=== PATIENT | male | born 1960 | race Caucasian/White ===

== ENCOUNTER 2016-10-16 15:53 | Emergency (ER) | payer OTHER ==
--- NOTE | ~2016-10-16 | EKG ---
PATIENT: MARTY MOISE UNIT #: [id number] Ventricular Rate: 83 BPM Atrial Rate: 83 BPM P-R Interval: 160 ms QRS Duration: 156 ms Q-T Interval: 408 ms QTC Calculation(Bezet): 479 ms P [place]: 36 degrees Calculated R [place]: 72 degrees Calculated T [place]: 2 degrees Diagnosis Line: Normal sinus rhythm Diagnosis Line: Right bundle branch block Diagnosis Line: Abnormal ECG Diagnosis Line: When compared with ECG of 03-JUN-2016 15:30, Diagnosis Line: No significant change was found Diagnosis Line: Confirmed by NGHIA LOONEY MD ([id number]) on Diagnosis Line: 10/18/2016 4:03:32 PM INTERPRETING MD: AURE MUÑOZ
--- NOTE | ~2016-10-16 | CR72 ---
[facility] A Service of [facility] & [facility] RADIOLOGY TEXT RESULTS PATIENT: MARTY MOISE LOCATION: [facility] : 58 UNIT #: [id number] AGE: [address]: Raquel Lerma MD SEX: M ORDER DR: [id number] [facility] [address] [place], [place] [address] [id number] MR#: [id number] Acc #: [id number] NAME: MARTY MOISE : 1960 SEX: M STUDY DATE/TIME: 10/16/2016 15:46 UNIT: [facility] ROOM: STUDY DESCRIPTION: CR Chest Single View Portable Attending Physician: Raquel Lerma M.D. Ordering Physician: Raquel Lerma M.D. Primary Care Physician: Derian Edwards MEDICAL IMAGING REPORT This report is preliminary unless electronic signature is present EXAM Portable chest HISTORY Chest pain and weakness for 2 days. FINDINGS The cardiac size and pulmonary vascularity are normal. Lungs are clear. No infiltrates or effusions. Mild mid-right thoracic curve. Developmental fusion of the left first and second ribs. IMPRESSION No acute findings. No active disease. Dictated by... Evert Gaspar M.D. THIS IS AN ELECTRONICALLY VERIFIED REPORT Evert Gaspar M.D. at 10/17/2016 2:17 PM KRISS/sally TD: 10/17/2016 06:45 JOB #: [id number] MEDICAL IMAGING REPORT COPY
[~2016-10-16 15:53] MED LIST: AMBIEN10 MG PO; ASPIRIN ENTERI325 M1 PO; ASPIRIN81 M1 PO; ASPIRIN81 M2 PO; AVANDAMET PO; AVANDIA PO; B/P MED PO; BENADRYL25 MG PO; CARVEDILOL3.125 MG PO; CLONAZEPAM0.5 MG PO; CLOPIDOGREL75 MG PO; COREG3.125 MG PO; DIOVAN HCT 160-1 TAB PO; DIOVAN HCT 1601 EACH PO; DIOVAN160 MG PO; DURAGESIC1 EACH TD; FISH OIL 1,001000 M1 PO; FISH OIL 1,001000 MG PO; FLEXERIL10 MG PO; GABAPENTIN400 MG PO; GABAPENTIN600 MG PO; GLUCOPHAGE500 MG PO; HIBICLENS118 ML TP; HUMULIN N VIAL SQ; HUMULIN N100 U/ML SQ; HUMULIN R100 U/ML SQ; HUMULIN R100 U/ML SUBQ; HYCODAN PO; HYDRALAZINE HCL25 MG PO; HYDROCHLOROTH12.5 M1 PO; IMDUR-ER60 M1 PO; IMDUR-ER60 M2 PO; IMDUR-ER60 MG PO; KADIAN10 MG PO; KEFZOL2 GM INJ; KLONOPIN PO; KLONOPIN0.5 MG PO; KLONOPIN2 MG PO; LANTUS100 U/ML SUBQ; LEVEMIR SUBQ; LIPITOR PO; LIPITOR40 MG PO; LISINOPRIL PO; LOPID600 MG PO; LYRICA50 MG PO; METFORMIN HCL500 M1 PO; METFORMIN PO; MOBIC PO; NAPROSYN500 MG PO; NEURONTIN600 MG PO; NITROGLYGERIN0.4 MG SL; NITROSTAT0.4 MG SL; NORVASC10 MG PO; NOVOLIN N100 UNIT/1 SUBQ; NOVOLIN R100 UNITS/ SQ; NOVOLIN R100 UNITS/ SUBQ; OMEPRAZOLE40 M1 PO; OXYCODONE HCL10 MG PO; PERCOCET 10/3251 TAB PO; PERCOCET PO; PERCOCET10 PO; PERCOCET5/325 PO; PHENERGAN25 M1 PO; PLAVIX PO; PRILOSEC40 MG PO; PROMETHAZINE HC25 MG PO; PROTONIX PO; ROBAXIN 750750 M1 PO; ROBAXIN PO; SIMVASTATIN20 MG PO; TRICOR145 MG PO; ULTRA A-D2 MG PO; VALSARTAN-HCTZ1 EAC1 PO; VICTOZA0.6 MG/0.1 SQ; ZITHROMAX PO; ZOCOR20 MG PO; [UNRECOGNIZED DRUG - OTHER] SUBQ
[2016-10-16 16:13] LABS: POC - TROPONIN <0.05 ng/mL (<=0.05)
[2016-10-16 17:01] LABS: BASOPHIL# 0.1 X10e3 (0-0.3); BASOPHIL% 1.1 % (0-2.5); DIFF IND NO; EOSINOPHIL# 0.3 X10e3 (0-0.7); EOSINOPHIL% 3.6 % (0.0-7.0); HEMATOCRIT 39.6 % (38.0-50.0); HEMOGLOBIN 13.8 gm/dL (13.0-16.0); LYMPHOCYTE# 2.3 X10e3 (1.0-3.5); LYMPHOCYTE% 26.7 % (17.0-45.0); MEAN CELL VOLUME 83.1 FL (83-96); MEAN CORPUSCULAR HEMOGLOBIN 28.9 PG (28-34); MEAN CORPUSCULAR HGB CONC 34.8 g/dL (30-36); MEAN PLATELET VOLUME 9.8 FL (6.5-11.5); MONOCYTE# 0.6 X10e3 (0-1.0); MONOCYTE% 7.1 % (3.0-12.0); NEUTROPHIL# 5.2 X10e3 (1.5-7.1); NEUTROPHIL% 61.5 % (40-75); PLATELET COUNT 225 X10e3 (140-420); RED BLOOD COUNT 4.76 X10e (3.90-5.60); RED CELL DISTRIBUTION WIDTH 13.5 % (11.0-15.5); WHITE BLOOD COUNT 8.5 X10e3 (4.0-10.5)
[2016-10-16 17:14] LABS: PARTIAL THROMBOPLASTIN TIME 27.3 SECONDS (23.5-31.3); PROTHROMBIN TIME (PATIENT) 10.5 SECONDS (9.6-11.5)
[2016-10-16 17:21] LABS: ALBUMIN SERUM 3.9 g/dL (3.5-5.0); ALKALINE PHOSPHATASE 77 U/L (32-92); ALT (SGPT) 34 U/L (10-40); AST (SGOT) 26 U/L (10-42); BILIRUBIN,TOTAL 0.6 mg/dL (0.2-2.0); BLOOD UREA NITROGEN 16 mg/dL (9-23); CALCIUM SERUM 9.1 mg/dL (8.4-10.2); CARBON DIOXIDE 25 mmol/L (22-31); CHLORIDE 100 mmol/L (100-111); CREATININE SERUM 0.8 mg/dL (0.6-1.4); GLOM FILT RATE Estimated ABOVE60 mL/min (>60); GLUCOSE FASTING 329 mg/dL (70-110); POTASSIUM 4.2 mmol/L (3.5-5.1); PROTEIN TOTAL SERUM 7.1 g/dL (6.0-8.3); SODIUM 133 mmol/L (135-145)
[2016-10-16 17:22] LABS: BILIRUBIN, DIRECT <0.1 mg/dL (0.0-0.2); BILIRUBIN,INDIRECT 0.5 mg/dL (0.0-0.9)
[2016-10-16 18:24] LABS: POC - TROPONIN <0.05 ng/mL (<=0.05)
== END 2016-10-16 19:50 | disposition home or self-care (01) ==
LOC: CED 15:53
PROVIDERS: Emergency Medicine
DX: E11.65 Type 2 diabetes mellitus with hyperglycemia (principal); I10 Essential (primary) hypertension
CPT/HCPCS: 36415; 71010; 80048; 80076; 82553; 82947; 84484; 85025; 85610; 85730; 93005; 96361; 96374; 96375; 99284; J2270; J2405

== ENCOUNTER 2016-11-18 14:59 | Emergency (ER) | payer OTHER ==
--- NOTE | ~2016-11-18 | CR2 ---
[facility] A Service of [facility] & [facility] RADIOLOGY TEXT RESULTS PATIENT: MARTY MOISE LOCATION: [facility] : 58 UNIT #: [id number] AGE: [address]: Donny Burton MD SEX: M ORDER DR: [id number] [facility] [address] [place], [place] [address] [id number] MR#: [id number] Acc #: [id number] NAME: MARTY MOISE : 1960 SEX: M STUDY DATE/TIME: 11/18/2016 15:28 UNIT: [facility] ROOM: STUDY DESCRIPTION: CR Abdomen Acute Series Attending Physician: Donny Burton M.D. Ordering Physician: Donny Burton M.D. Primary Care Physician: Derian Edwards M.D. MEDICAL IMAGING REPORT This report is preliminary unless electronic signature is present EXAM Acute abdomen series with chest 11/18/2016 HISTORY Weakness and vomiting for 4 days. An AP view of the chest is obtained and flat and upright views of the abdomen obtained. FINDINGS Chest radiograph is compared to 10/16/2016 and remains unremarkable. Flat and upright abdomen shows a essentially normal bowel gas pattern. There are postop changes of cholecystectomy. Fecal residue is seen throughout the colon. CONCLUSION 1. Normal chest. 2. Status post cholecystectomy. 3. Unremarkable bowel gas pattern. Dictated by... Edward Brown M.D. THIS IS AN ELECTRONICALLY VERIFIED REPORT Edward Brown M.D. at 11/19/2016 10:56 AM Usha TD: 11/18/2016 18:45 JOB #: [id number] MEDICAL IMAGING REPORT Page 1 of 1 COPY
[2016-11-18 14:01] LABS: BASOPHIL# 0.1 X10e3 (0-0.3); BASOPHIL% 1.1 % (0-2.5); EOSINOPHIL# 0.3 X10e3 (0-0.7); EOSINOPHIL% 4.4 % (0.0-7.0); HEMATOCRIT 39.8 % (38.0-50.0); HEMOGLOBIN 13.3 gm/dL (13.0-16.0); LYMPHOCYTE# 1.9 X10e3 (1.0-3.5); MEAN CELL VOLUME 84.4 FL (83-96); MEAN CORPUSCULAR HEMOGLOBIN 28.3 PG (28-34); MEAN CORPUSCULAR HGB CONC 33.5 g/dL (30-36); MONOCYTE# 0.6 X10e3 (0-1.0); MONOCYTE% 8.5 % (3.0-12.0); NEUTROPHIL# 4.1 X10e3 (1.5-7.1); PLATELET COUNT 239 X10e3 (140-420); RED BLOOD COUNT 4.71 X10e (3.90-5.60); RED CELL DISTRIBUTION WIDTH 13.3 % (11.0-15.5); WHITE BLOOD COUNT 6.9 X10e3 (4.0-10.5)
[2016-11-18 14:02] LABS: DIFF IND NO
[2016-11-18 14:28] LABS: BILIRUBIN, DIRECT 0.1 mg/dL (0.0-0.2); BILIRUBIN,INDIRECT 0.5 mg/dL (0.0-0.9); BILIRUBIN,TOTAL 0.6 mg/dL (0.2-2.0); CALCIUM SERUM 9.4 mg/dL (8.4-10.2); GLOM FILT RATE Estimated 83.2 mL/min (>60); POTASSIUM 4.4 mmol/L (3.5-5.1); PROTEIN TOTAL SERUM 7.5 g/dL (6.0-8.3)
[2016-11-18 14:28] LABS: URINE SOURCE CLEAN CATCH
[2016-11-18 14:39] LABS: URINE APPEARANCE CLEAR; URINE BILIRUBIN NEG (NEG); URINE BLOOD NEG (NEG); URINE COLOR YELLOW; URINE GLUCOSE NEG (NEG); URINE KETONE NEG (NEG); URINE LEUKOCYTE ESTERASE NEG (NEG); URINE NITRATE NEG (NEG); URINE PROTEIN NEG (NEG); URINE SPECIFIC GRAVITY 1.014 (1.003-1.035)
[2016-11-18 15:10] LABS: CULTURE INDICATED? NO
== END 2016-11-18 16:53 | disposition home or self-care (01) ==
LOC: CED 14:59
DX: R25.2 Cramp and spasm (principal); E11.65 Type 2 diabetes mellitus with hyperglycemia; I10 Essential (primary) hypertension; R11.2 Nausea with vomiting, unspecified
CPT/HCPCS: 36415; 74022; 80048; 80076; 81003; 82947; 83690; 85025; 99283

== ENCOUNTER 2017-02-02 11:31 | Inpatient (IN) | payer OTHER ==
--- NOTE | ~2017-02-02 | CO ---
Unit #: [id number] #: [id number] Patient: MARTY MOISE [id number] [address] [address] [id number] I MR#: [id number] NAME: MARTY MOISE ROOM: 231 Age: 56 Sex: M Admission Date: 02/02/2017 : 1960 Attending Physician: Arnol Phan M.D. Primary Care Physician: Derian Edwards M.D. CONSULTATION REPORT REASON FOR CONSULTATION Elevated creatinine level. HISTORY OF PRESENT ILLNESS The patient is a 56-year-old white male with known history of type 2 diabetes, diabetic neuropathy, hypertension, hyperlipidemia, coronary artery disease, GERD, and peripheral arterial disease, came in with diabetic left foot infection, started on vancomycin, noted to have a vancomycin level of 39, creatinine on admission noted to be 1.2 with a creatinine level of 0.81 in 10/2016 and 11/2016. The creatinine gradually going up with a level of 3.1 on 02/04/2017 and 5.5 on 02/05/2017. We are asked to see the patient for worsening renal function. No reported vomiting, diarrhea, or abdominal pain. The patient had fever with chills and foot x-ray did not reveal any evidence of osteomyelitis, but repeat MRI revealed foot abscess. PAST MEDICAL HISTORY Significant for coronary artery disease with coronary artery stent placement; in 2015 stress test, no stress induced reversible ischemia. Type 2 diabetes with peripheral neuropathy, hypertension, hyperlipidemia, peripheral vascular disease, GERD, previous history of osteomyelitis of the second left toe. PAST SURGICAL HISTORY 1. Coronary artery stent placement. 2. Status post cholecystectomy. 3. Status post cataract surgery. 4. Amputation of the foot. SOCIAL HISTORY The patient lives at home with his . Does not drink or smoke. FAMILY HISTORY Unremarkable. ALLERGIES No known drug allergies. HOME MEDICATIONS Include: 1. Ambien. 2. Clonazepam. 3. Novolin. 4. Promethazine. Unit #: [id number] #: [id number] Patient: MRATY MOISE 5. Oxycodone. 6. Carvedilol. 7. Atorvastatin. 8. Imdur. 9. Plavix. 10. Valsartan/HCTZ. 11. Omeprazole. 12. Metformin. 13. Gabapentin. 14. Robaxin. REVIEW OF SYSTEMS CVS: No chest pain. RESPIRATORY: No cough or expectoration. GI: No diarrhea. No vomiting. : No hematuria. No dysuria. PHYSICAL EXAMINATION GENERAL: The patient is awake, somewhat confused with tremulousness. VITAL SIGNS: Temperature is 97.7, heart rate is 95/minute, blood pressure 174/92, and oxygen saturation 98%. HEENT: Head is atraumatic. Extraocular movements are intact. Sclerae are anicteric. NECK: Supple. There is no elevation of the JVD. CHEST: Clear. Air entry is equal bilaterally. Breathing is vesicular in nature. HEART: S1 and S2 audible. There is no S3, no S4. ABDOMEN: Soft. There is no organomegaly. No guarding. No rigidity. No rebound tenderness. There is trace edema. CORPORATE INTERN: Motor system is intact, tremulousness. DIAGNOSTIC STUDIES LABORATORY RESULTS: On 02/05/2017; sodium 134, potassium 3.8, chloride 103, CO2 of 23, BUN 39, creatinine 6.1, glucose 216, calcium is 7.5. BNP is 260. Lactic acid is 0.8. WBC 17.7, hemoglobin is 9.7, hematocrit is 29.4, platelets 288. Urinalysis on admission included 1+ protein, 5 to 10 wbc's, 2 to 5 rbc's. IMPRESSION 1. Acute kidney injury likely secondary to vancomycin toxicity possible underlying contribution from underlying sepsis and foot abscesses with diabetic foot infection. The renal function could worsen further in the next few days before improvement. We will monitor for the need for dialysis. Currently, no emergent need for dialysis, we will continue to monitor. Tremulousness partly secondary to Neurontin. 2. Diabetes. 3. Diabetic foot infection/abscess. 4. Hypertension. 5. Monitor for anemia. Dictated by... Prince Johnson M.D. RA/bhavin TD: 02/09/2017 14:18 JOB #: [id number] Unit #: [id number] #: [id number] Patient: MARTY MOISE CONSULTATION REPORT Page 1 of 1 X Prince Johnson MD CONSULTATION REPORT
--- NOTE | ~2017-02-02 | MR61 ---
[facility] A Service of [facility] & [facility] RADIOLOGY TEXT RESULTS PATIENT: MARTY MOISE LOCATION: C2A : 58 UNIT #: [id number] AGE: [address]: Clara Crane MD SEX: M ORDER DR: [id number] [place] [id number] [facility] [place], [place] [address] [id number] I MR#: [id number] Acc #: [id number] NAME: MARTY MOISE : 1960 SEX: M STUDY DATE/TIME: 02/03/2017 21:39 UNIT: C2 ROOM: 231 STUDY DESCRIPTION: MR Foot Wo Contrast Rt Attending Physician: Clara Craen M.D. Ordering Physician: Clara Crane M.D. Primary Care Physician: Derian Edwards M.D. MRI CENTER REPORT This report is preliminary unless electronic signature is present. EXAM MRI of the right foot without contrast HISTORY 56-year-old male with right foot wound. Cellulitis. The patient has a history of diabetes, peripheral arterial disease. Possible splinter plantar surface of the foot. Evaluate for abscess or foreign body. FINDINGS Multiplanar multiecho imaging was performed of the right foot utilizing a high field magnet and dedicated protocol. Study is severely degraded due to motion artifact. Patient poorly cooperative for exam, apparently due to dementia. Bone structure and alignment appears normal. No focal marrow edema identified to suggest osteomyelitis. No T1 marrow replacement identified. Marked diffuse soft tissue swelling edema throughout the foot. In the deep plantar aspect of the foot between the fibers or within the fibers of the flexor digitorum brevis muscle, there is a 1.2 x 0.9 x 2.4 cm T2 hyperintense collection concerning for possible abscess. This does not appear to be directly related to the tendon sheath to suggest tenosynovitis. This lies about the level of the mid portion of third metatarsal. No penetrating ulcer is identified. Generalized atrophy of the intrinsic foot musculature compatible with chronic neurovascular disease. IMPRESSION 1. Severely limited study due to motion artifact. 2. Abnormal apparent fluid collection within the deep soft tissues of the mid plantar foot measuring about 0.9 x 1.2 cm in transverse dimensions and about 2.4 cm in length. This appears interspersed within the flexor digitorum brevis muscle and is about the level of STS. [place] A Service of [facility] RADIOLOGY TEXT RESULTS PATIENT: MARTY MOISE LOCATION: [facility] 231-01 : 58 UNIT #: [id number] AGE: [address]: Clara Crane MD SEX: M ORDER DR: the second and third, mid metatarsal shaft. Though nonspecific, this would be concerning for possible abscess in the setting of acute infection. 3. Generalized soft tissue swelling and edema about the foot, most likely due to underlying cellulitis and chronic neurovascular disease. 4. No findings to suggest neuropathic change of the foot or osteomyelitis. Dictated by... Chino Sexton M.D. THIS IS AN ELECTRONICALLY VERIFIED REPORT Chino Sexton M.D. at 02/04/2017 9:11 PM Fortunato TD: 02/04/2017 16:21 JOB #: [id number] MRI CENTER REPORT Page 1 of 1 COPY
--- NOTE | ~2017-02-02 | DS ---
Unit #: [id number] #: [id number] Patient: MARTY MOISE [id number] [address] [place], [place] [address] [id number] I MR#: [id number] NAME: MARTY MOISE ROOM: 231 Age: 56 Sex: M Admission Date: 02/02/2017 : 1960 Discharge Date: 02/16/2017 Attending Physician: Arnol Phan M.D. Primary Care Physician: Derian Edwards M.D. DISCHARGE SUMMARY DISCHARGE DIAGNOSES 1. Sepsis. 2. Right lower extremity cellulitis and abscess. 3. Acute kidney injury. 4. Diabetes. 5. Hypertension. HOSPITAL COURSE The patient is a 56-year-old male who presented to [facility] Emergency Department secondary to some right lower extremity redness. He was noted to have significant cellulitis on the right and a tiny wound on the left foot. The patient was started on IV antibiotics, which included Zosyn and vancomycin. The patient developed acute kidney injury hospital day 2 that was felt likely secondary to vancomycin toxicity with possible contribution from underlying sepsis and foot abscess. The patient's creatinine went on to worsen such that nephrology consult was obtained, and the patient ultimately needed dialysis. At the time of discharge the patient continues to require dialysis and has just had a seat given to him. The patient was seen in consultation by podiatry who took the patient to the operating room on February 06. The patient was noted to have a deep abscess of the right foot and was taken for incision and drainage. The patient tolerated the procedure well and has remained on antibiotics since. Ultimately, the patient's wound culture grew Klebsiella pneumonia. The patient was managed with ceftriaxone. Doxycycline was added for coverage of possible gram-positive organisms not isolated in culture. At this time, given the establishment of a hemodialysis chair, the patient is being discharged home. He has completed his antibiotic course for his cellulitis and abscess. The patient is being discharged home with home health for wound care. DISCHARGE MEDICATIONS 1. Tylenol 650 mg p.o. q.6 hours p.r.n. erew-ia-ujxmcnck pain or fever. 2. Promethazine 25 mg p.o. q.4 hours p.r.n. 3. Ambien 10 mg p.o. q.h.s. p.r.n. insomnia. 4. Klonopin 0.25 mg p.o. b.i.d. p.r.n. anxiety. 5. Coreg 3.125 mg p.o. b.i.d. 6. Cardizem CD 240 mg p.o. daily. 7. Lipitor 40 mg daily. 8. Hydralazine 100 mg p.o. t.i.d. Unit #: [id number] #: [id number] Patient: MARTY MOISE 9. Novolin-R 20 units subcu t.i.d. 10. Novolin-N 75 units subcu b.i.d. 11. Oxycodone/acetaminophen 10/325 mg 1 p.o. q.i.d. p.r.n. pain. 12. Plavix 75 mg daily. 13. Omeprazole 40 mg daily. 14. Imdur ER 60 mg p.o. daily. 15. Nitrostat 0.4 mg p.o. q.5 minutes p.r.n. chest pain, 3 doses max. FOLLOWUP 1. The patient should follow up with his regularly scheduled hemodialysis, which is next scheduled for 02/18/17. 2. He is being discharged home with home health for wound care. 3. Should follow up with his PCP in 1 week. Dictated by... Denzel Webster/leonel TD: 02/17/2017 08:07 JOB #: [id number] DISCHARGE SUMMARY Page 1 of 1 X Arnol Phan MD X DISCHARGE SUMMARY
--- NOTE | ~2017-02-02 | CR123 ---
[facility] A Service of [facility] & [facility] RADIOLOGY TEXT RESULTS PATIENT: MARTY MOISE LOCATION: [facility] 231-01 : 58 UNIT #: [id number] AGE: [address]: Clara Crane MD SEX: M ORDER DR: [id number] [facility] [address] [place], [place] [address] [id number] I MR#: [id number] Acc #: [id number] NAME: MARTY MOISE : 1960 SEX: M STUDY DATE/TIME: 02/02/2017 12:09 UNIT: CEDOF ROOM: 92963 STUDY DESCRIPTION: CR Foot 2 Views Lt Attending Physician: Lore Arreguin M.D. Ordering Physician: Honey Muro P.A.-C. Primary Care Physician: Derian Edwards M.D. MEDICAL IMAGING REPORT This report is preliminary unless electronic signature is present EXAM Three views left foot. DATE 02/02/2017 HISTORY 56-year-old male with left foot pain for 1 month with swelling, redness. History of diabetes and gout. History of left toe amputation. COMPARISON Left foot radiographs 06/14/2014. FINDINGS There has been amputation of the left second digit, with only the proximal aspect of the proximal phalanx remaining, which maintains appropriate alignment of the second MTP joint. No osteolysis or periostitis is seen to suggest osteomyelitis. Extensive dense vascular calcifications are present within the left foot. No fracture. No dislocation. Small marginal erosion is demonstrated at the proximal-medial aspect of the proximal phalanx of the great toe, in keeping with the history of gout. Joint spaces appear well maintained, however. IMPRESSION 1. No acute left foot findings. 2. Amputation of left second toe with the proximal aspect of the proximal phalanx remaining. The amputation is a new finding since the 06/14/2014 exam. 3. No radiographic evidence of osteomyelitis. 4. Extensive calcific atherosclerosis of left foot. 5. Small marginal erosion at the proximal-medial surface of the proximal phalanx of the great toe in keeping with the patient's stated history of gout. There may be a similar, smaller marginal erosion or STS. [facility] A Service of [facility] & [facility] RADIOLOGY TEXT RESULTS PATIENT: MARTY MOISE LOCATION: A 231-01 : 58 UNIT #: [id number] AGE: [address]: Clara Crane MD SEX: M ORDER DR: subchondral cystic change at the medial aspect of the first interphalangeal joint of the proximal aspect of the first metatarsal, as well. Dictated by... Sejal Green M.D. THIS IS AN ELECTRONICALLY VERIFIED REPORT Sejal Green M.D. at 02/03/2017 8:32 AM JOHNATHAN/jules TD: 02/02/2017 16:34 JOB #: [id number] MEDICAL IMAGING REPORT Page 1 of 1 COPY
--- NOTE | ~2017-02-02 | US77 ---
[facility] A Service of [place] & [facility] RADIOLOGY TEXT RESULTS PATIENT: MARTY MOISE LOCATION: C2A 231-01 : 58 UNIT #: [id number] AGE: [address]: Arnol Phan MD SEX: M ORDER DR: [id number] [facility] [address] [place], [place] [address] [id number] I MR#: [id number] Acc #: [id number] NAME: MARTY MOISE : 1960 SEX: M STUDY DATE/TIME: 02/06/2017 9:28 UNIT: A ROOM: [facility] STUDY DESCRIPTION: US Kidney Bilateral Complete Attending Physician: Arnol Phan M.D. Ordering Physician: Ed Doctor [id number] [facility] Primary Care Physician: Derian Edwards M.D. MEDICAL IMAGING REPORT This report is preliminary unless electronic signature is present EXAM Renal ultrasound INDICATION Abdominal pain for 4 days. Patient has a creatinine of 6.7 and a GFR of 8. He has a history of diabetes. TECHNIQUE Hunter-scale and color Doppler sonographic images were obtained through the kidneys and bladder. FINDINGS Right kidney measures within normal size limits at 10.4 x 4.8 x 4.5 cm but it certainly has areas of cortical thinning. The left kidney appears relatively hypertrophied measuring up to 14.9 x 8.3 x 7.0 cm. No hydronephrosis is identified on either side. No solid or cystic renal masses are seen. Patient's bladder is decompressed with a Garvey catheter. IMPRESSION Cortical thinning involving the right kidney likely reflecting the sequela of prior insults. Left kidney appears relatively hypertrophied. Renal scan could allow for quantification of split renal function. No hydronephrosis is seen. Dictated by... Amarilis Fine M.D. THIS IS AN ELECTRONICALLY VERIFIED REPORT Amarilis Fine M.D. at 02/06/2017 3:55 PM AFF/mjs TD: 02/06/2017 14:10 [facility] A Service of [place] & [facility] RADIOLOGY TEXT RESULTS PATIENT: MARTY MOISE LOCATION: [place] [address] : 58 UNIT #: [id number] AGE: [address]: Arnol Phan MD SEX: M ORDER DR: JOB #: [id number] MEDICAL IMAGING REPORT Page 1 of 1 COPY
--- NOTE | ~2017-02-02 | XA93 ---
[facility] A Service of [facility] & [facility] RADIOLOGY TEXT RESULTS PATIENT: MARTY MOISE LOCATION: C2A : 58 UNIT #: [id number] AGE: [address]: Arnol Phan MD SEX: M ORDER DR: [id number] [facility] [address] [place], [place] [address] [id number] I MR#: [id number] Acc #: [id number] NAME: MARTY MOISE : 1960 SEX: M STUDY DATE/TIME: 02/15/2017 9:43 UNIT: C2A ROOM: [facility] STUDY DESCRIPTION: XA CVC Tunneled WO Pump/Port Attending Physician: Arnol Phan M.D. Ordering Physician: Prince Johnson M.D. Primary Care Physician: Derian Edwards M.D. MEDICAL IMAGING REPORT This report is preliminary unless electronic signature is present EXAM Tunneled dialysis catheter placement under ultrasound and fluoroscopic guidance HISTORY Kidney failure. Need for dialysis. TECHNIQUE The procedure was explained to the patient including risks, benefits and complications. Informed consent was obtained and a formal time-out procedure was utilized. Full barrier sterile technique was utilized, including equipment draping with long drapes, prepped with ChloraPrep, gloves, masks, caps, shoe covers and gowns. Sterile ultrasound probe cover were utilized. The patient's existing dialysis catheter was withdrawn and removed. Using full barrier sterile technique as described above, initially the right internal jugular vein was punctured with ultrasound guidance. Ultrasound was used to confirm vessel patency which was confirmed and permanent ultrasound images were recorded. An 0.018 guidewire was passed through the needle and a micropuncture set was utilized. An 0.035 guidewire was placed through the micropuncture sheath and the tract was dilated and a peel-away sheath was left in place. A 24 cm tunneled dialysis catheter was then tunneled from a skin puncture site, approximately 5-6 cm from the jugular vein puncture site, after local anesthesia with lidocaine with epinephrine. The dialysis catheter was then passed through the peel-away sheath. A kink in the catheter was resolved with manual massage of the catheter in passage of an 0.035 Amplatz wire. The tip of the catheter is in good position at the cavoatrial junction. The catheter was sutured in place with 2-0 Silk sutures and a sterile dressing was applied. The patient tolerated the procedure well. The catheter was flushed with saline and then with Hep-Lock solution. Total fluoroscopy time 0.3 minutes with a total dose of 4 mg. [facility] A Service of [facility] RADIOLOGY TEXT RESULTS PATIENT: MARTY MOISE LOCATION: C2A 231-01 : 58 UNIT #: [id number] AGE: [address]: Arnol Phan MD SEX: M ORDER DR: JONY Successful placement of a tunneled dialysis catheter with ultrasound and fluoroscopic guidance as described above. Conscious sedation was utilized with intravenous Versed and Fentanyl that was administered by nursing who was present and monitoring the patient during the examination. Total physician face time under conscious sedation approximately 25 minutes. Dictated by... Bassem Oconnell M.D. THIS IS AN ELECTRONICALLY VERIFIED REPORT Bassem Oconnell M.D. at 02/16/2017 6:47 AM TYRESE/fabi TD: 02/15/2017 18:00 JOB #: [id number] MEDICAL IMAGING REPORT Page 1 of 1 COPY
--- NOTE | ~2017-02-02 | HP ---
Unit #: [id number] #: [id number] Patient: MARTY MOISE [id number] [facility] [address] [place], [place] [address] [id number] MR#: [id number] NAME: MARTY MOISE ROOM: Age: 56 Sex: M Admission Date: 02/02/2017 : 1960 Attending Physician: Honey Muro P.A.-C. Primary Care Physician: Derian Edwards M.D. HISTORY AND PHYSICAL CHIEF COMPLAINT Bilateral feet sores, swelling. HISTORY OF PRESENT ILLNESS The patient is a 56-year-old male with a past medical history of diabetes wit neuropathy, coronary artery disease, hypertension, hyperlipidemia, gastroesophageal reflux disease, peripheral arterial disease, chronic pain. The patient presented to the emergency department for evaluation of the above. Regarding the left foot wound, the patient does not recall any trauma. He states that he has a "hole" on the bottom of the foot for about a month. He states that he has seen his primary care physician twice regarding the wound. He has not been on any antibiotics. Regarding the right foot wound, he states that about three days ago his thought that she saw a splinter on the plantar surface of his foot. She tried to remove it. He states that he had a great deal of pain and so asked her to stop. He woke the next morning with increasing swelling and redness and pain involving the right foot. He states that he has had one bout of emesis. He denies any fever. No drainage from the foot. In the emergency department initial pulse was 95, temperature 97.7. Bilateral foot x-rays showed no radiographic evidence of osteomyelitis. He was given vancomycin in the emergency department. He is being admitted to [facility] for evaluation and further treatment. PAST MEDICAL HISTORY 1. Admission to [facility] 06/03/2016 for atypical chest pain. He underwent a Cardiolite stress test that showed no stress induced ischemia. He also had a two-dimensional echocardiogram that showed a normal ejection fraction. 2. Coronary artery disease, status post stent placement. 3. Diabetes with peripheral neuropathy. 4. Hypertension. 5. Hyperlipidemia. 6. Peripheral vascular disease. 7. Gastroesophageal reflux disease. 8. Chronic pain, followed by [facility]. 9. Cervical spine mass with associated radiculopathy, followed by neurosurgery. 10. Osteomyelitis of the second toe of the left foot, requiring amputation. Unit #: [id number] #: [id number] Patient: MARTY MOISE PAST SURGICAL HISTORY 1. Cardiac stent placement. 2. Cholecystectomy. 3. Cataract surgery. 4. Carpal tunnel surgery. 5. Amputation of the second toe of the left foot. SOCIAL HISTORY The patient lives with his . There is no tobacco or alcohol use. He walks without assistance. FAMILY HISTORY Notable for his dad having a myocardial infarction. ALLERGIES No known drug allergies. HOME MEDICATIONS 1. Clonazepam. 2. Zolpidem. 3. Novolin R. 4. Promethazine. 5. Oxycodone. 6. Carvedilol. 7. Atorvastatin. 8. Imdur. 9. Plavix. 10. Nitroglycerin. 11. Valsartan/HCTZ. 12. Omeprazole. 13. Metformin. 14. Gabapentin. 15. Robaxin. Home medications will need to be reviewed and verified. REVIEW OF SYSTEMS A complete review of systems is negative except as indicated in the history of present illness. The patient states that his blood sugars are typically less than 300. He has been taking his medications as prescribed. PHYSICAL EXAMINATION GENERAL: The patient is a male who is awake and alert, in no acute distress. VITALS: Temperature 97.7, pulse 95, respiratory rate 16, blood pressure 174/92, oxygen saturation 98% on room air. HEENT: The head is atraumatic. Mucous membranes are moist. NECK: Supple. Trachea midline. LUNGS: Clear to auscultation bilaterally with no increased work of breathing. HEART: Regular rate and rhythm. ABDOMEN: Soft and nontender with bowel sounds present in all four quadrants. EXTREMITIES: The right foot on the plantar surface demonstrates a linear abrasion with surrounding erythema, warmth and tenderness to palpation involving the entire foot. I was unable to palpate a dorsalis pedis pulse, but he does have a dopplerable dorsalis pedis pulse involving the right foot. The plantar aspect of the left foot demonstrates a 2-3 mm Unit #: [id number] #: [id number] Patient: MARTY MOISE circular defect. I am unable to visualize the base. There is surrounding callous formation. There is not significant erythema in association with this wound. I am able to palpate a dorsalis pedis pulse in the left foot. The second digit has been previously amputated. NEUROLOGIC: The patient is awake and alert. He follows commands. PSYCHIATRIC: Mood and affect are normal. The patient is cooperative. SKIN: Skin demonstrates the previously described abnormalities. DIAGNOSTIC STUDIES IMAGING: Bilateral foot x-rays show no radiographic evidence of osteomyelitis. LABORATORY: CBC notable for white blood cell count 16.5. CMP notable for sodium of 131, that corrects when glucose of 361 is accounted for. Alkaline phosphatase is 167. BNP is 77. ASSESSMENT The patient is a 56-year-old male with 1. Right foot wound/cellulitis. The patient received vancomycin in the emergency department. 2. Left foot wound. 3. Uncontrolled diabetes with an initial glucose of 361. 4. Sepsis. 5. Coronary artery disease. Status post stent placement. 6. Hypertension. 7. Hyperlipidemia. 8. Gastroesophageal reflux disease. 9. Peripheral arterial disease. 10. Chronic pain, followed by [facility]. 11. History of osteomyelitis, requiring toe amputation. PLAN 1. Admit to medical/surgical. 2. Healthy heart consistent carb diet. 3. N.p.o. after midnight. 4. Consult podiatry regarding foot wounds. 5. Normal saline at 75 cc an hour. 6. Blood cultures and sensitivity. 7. Wound culture and sensitivity. 8. Vancomycin IV and Zosyn IV for cellulitis pending further workup. 9. ABIs. 10. Sepsis protocol with stat lactic acid. 11. Hemoglobin A1c. 12. Low-dose sliding scale with Accu-Cheks. 13. P.r.n. morphine. 14. P.r.n. Zofran. 15. Repeat labs in the morning. 16. Additional workup and consultants based on the above. Dictated by Denzel Valadez/ty TD: 02/02/2017 14:36 JOB #: [id number] Unit #: [id number] #: [id number] Patient: MARTY MOISE HISTORY AND PHYSICAL Page 1 of 1 X Lore Arreguin MD X HISTORY AND PHYSICAL
--- NOTE | ~2017-02-02 | CR63 ---
[facility] A Service of [facility] & [facility] RADIOLOGY TEXT RESULTS PATIENT: MARTY MOISE LOCATION: C2A 231-01 : 58 UNIT #: [id number] AGE: [address]: Arnol Phan MD SEX: M ORDER DR: [id number] [facility] [address] [place], [place] [address] [id number] I MR#: [id number] Acc #: [id number] NAME: MARTY MOISE : 1960 SEX: M STUDY DATE/TIME: 02/05/2017 8:52 UNIT: C2A ROOM: [facility] STUDY DESCRIPTION: CR Chest 2 View Attending Physician: Clara Crane M.D. Ordering Physician: Clara Crane M.D. Primary Care Physician: Derian Edwards M.D. MEDICAL IMAGING REPORT This report is preliminary unless electronic signature is present EXAM Chest PA and lateral, 02/05/2017 HISTORY Shortness of breath beginning 02/02/2017. Fluid in lungs. Benign essential hypertension FINDINGS There is mild cardiac enlargement. Right arm approach PICC line tip is in the right atrium. There is poor inspiratory result with bibasilar atelectasis. The lungs are otherwise clear. Pulmonary vascularity is within normal limits. There are no pleural effusions. IMPRESSION 1. Mild cardiac enlargement. 2. Right arm approach PICC line tip is in the right atrium. 3. Poor inspiratory result with bibasilar atelectasis. Dictated by... Getachew Cuenca M.D. THIS IS AN ELECTRONICALLY VERIFIED REPORT Getachew Cuenca M.D. at 02/06/2017 8:06 AM YVONNE/arsalan TD: 02/05/2017 10:20 JOB #: [id number] MEDICAL IMAGING REPORT Page 1 of 1 COPY
--- NOTE | ~2017-02-02 | XA75 ---
[facility] A Service of [facility] & [facility] RADIOLOGY TEXT RESULTS PATIENT: MARTY CALDERON LOCATION: C2A 231 : 58 UNIT #: [id number] AGE: [address]: Arnol Phan MD SEX: M ORDER DR: [id number] [facility] [address] [place], [place] [address] [id number] I MR#: [id number] Acc #: [id number] NAME: MARTY CALDERON : 1960 SEX: M STUDY DATE/TIME: 02/07/2017 11:54 UNIT: C2A ROOM: [facility] STUDY DESCRIPTION: XA CVC Non-Tunnel Attending Physician: Arnol Phan M.D. Ordering Physician: Prince Johnson M.D. Primary Care Physician: Derian Edwards M.D. MEDICAL IMAGING REPORT This report is preliminary unless electronic signature is present EXAM Shiley catheter placement under ultrasound and fluoroscopy, 02/07/2017 HISTORY Short-term dialysis for renal failure. TECHNIQUE Procedure, attendant risks and options were discussed with Mr. Calderon; he understands and wishes to proceed. Ultrasound examination was performed of the right neck and the right internal jugular was found to be patent. Patient was placed in the supine position on the angio table. The right neck was prepped with Chlorhexidine and sterilely draped. Maximal sterile barrier technique including gowns, gloves, masks, hats and shoe covers were all utilized. Local anesthesia was infiltrated at the right IJ site, a micropuncture performed followed by placement of a 0.035 wire and subsequent dilatation with placement of a Shiley catheter, tip in the right atrium just below the cavoatrial junction. This was sewn in place utilizing a 2-0 Prolene suture. Line was flushed with heparinized saline heparin solution. Single spot radiograph was obtained documenting placement. Total fluoro time 0.9 minutes. Total exposure 14 mGy air kerma standard. CONCLUSION Successful placement of a right IJ Shiley catheter with the tip just below the cavoatrial junction in the right atrium. Dictated by... Edward Brown M.D. THIS IS AN ELECTRONICALLY VERIFIED REPORT Edward Brown M.D. at 02/09/2017 7:24 AM JFK/psc [facility] A Service of [facility] RADIOLOGY TEXT RESULTS PATIENT: MARTY CALDERON LOCATION: [facility] 231-01 : 58 UNIT #: [id number] AGE: [address]: Arnol Phan MD SEX: M ORDER DR: TD: 02/07/2017 23:05 JOB #: [id number] MEDICAL IMAGING REPORT Page 1 of 1 COPY
--- NOTE | ~2017-02-02 | OR ---
Unit #: [id number] #: [id number] Patient: MARTY MOISE [id number] [address] [place], [place] [address] [id number] I MR#: [id number] NAME: MARTY MOISE ROOM: [facility] Date of Procedure: 02/06/2017 Admission Date: 02/02/2017 Surgeon: Jimenez Cruz D.P.M. : 1960 Attending Physician: Arnol Phan M.D. Primary Care Physician: Derian Edwards M.D. OPERATIVE REPORT DICTATED FOR Jimenez Cruz D.P.M. SERVICE Podiatry. PREOPERATIVE DIAGNOSIS Deep abscess, right foot. POSTOPERATIVE DIAGNOSIS Deep abscess, right foot. PROCEDURE PERFORMED Incision and drainage of right foot. RESIDENT Gustabo Cosme MD, PGY-1. HEMOSTASIS Ankle tourniquet. ESTIMATED BLOOD LOSS 10 mL. SPECIMENS Tissue cultures taken in the OR. DRAINS There were no drains. COMPLICATIONS No complications. INDICATIONS FOR PROCEDURE The patient is a middle-aged male with a chief complaint of severe right foot pain for the following 2 days duration. The patient was admitted for severe right foot pain after it twice or thrice, pick out a foreign body which he stepped on his right foot a couple days prior. The patient had noticed increased swelling and redness of the right foot. The patient was admitted to [facility] and given broad-spectrum antibiotics. Podiatry was consulted. At this point, it was determined that his right foot was swollen and red and an MRI would best detect the possibility of Unit #: [id number] #: [id number] Patient: MARTY MOISE an abscess. Plan at this point, if the patient developed acute kidney problems, the patient could not undergo MRI with contrast. The noncontrast MRI was done, which identified an approximate 1 x 1 to 1.5 cm fluid collection in the mid foot. The patient was seen the following day, his condition has significantly worsened. A fluid filled blister had developed on the dorsal lateral aspect of the foot and the foot was swollen and redness had increased significantly. The patient was then scheduled for the following morning to undergo incision and drainage of the right foot. The patient understands the procedure to be performed today as well as potential risks and complications involved. No guarantees or assurances have been given and I will follow the patient and the patient's questions were answered preoperatively. DESCRIPTION OF PROCEDURE The patient was brought into the OR, placed on the table in supine position. Time-out was performed, in which the patient's MR number, date of , surgical site, and procedure were all verified. The ankle tourniquet was placed about the patient's right foot. The foot was then anesthetized with 0.5% Marcaine. The tourniquet was inflated to 250 mmHg after the foot was elevated for about a minute. The foot was scrubbed, prepped, and draped in usual sterile manner. Attention was directed to the plantar aspect of the right foot in which a vertical incision approximately 3:1 ratio was made about a developing ulcer. This wound was taken down to subcutaneous tissue and then the ulcer was removed and placed in the back table. At this point, Metzenbaum scissors were used to enter the plantar space deep to the plantar fascia. At this point, approximately 2 to 4 mL of purulent material was expressing the wound. Cultures were taken in the OR and the Metzenbaum scissors were used to probe proximally and dorsally in order to expose all tissue planes that the infection could have spread. The Metzenbaums were able to be pushed in the first and third interdigital space. After this was done, it was reasonably confident that all potential infectious spaces have been identified. The foot was milked in order to release the most purulence. At this point, the wound was flushed with sterile saline with multiple bulbs containing bacitracin. The plantar incision was then closed using 3-0 nylon in simple interrupted fashion and also vertical mattress fashion. 0.25-inch iodoform packing was then packed into the space in the wound with care being taken not to pack the wound too tight. Sterile compressive dressing consisting of Adaptic, 4x4s, ABD, Kerlix, and Chance wrap were applied to the patient's right foot. The patient tolerated the procedure well and was woken up, and taken back to PACU. Dictated by... Gustabo Cosme M.D. for Ann Wilder/bhavin TD: 02/09/2017 09:43 JOB #: [id number] Unit #: [id number] #: [id number] Patient: MARTY MOISE OPERATIVE REPORT Page 1 of 1 X X PROCEDURE OPERATIVE NOTE
--- NOTE | ~2017-02-02 | CR124 ---
[facility] A Service of [facility] RADIOLOGY TEXT RESULTS PATIENT: MARTY MOISE LOCATION: [facility] : 58 UNIT #: [id number] AGE: [address]: Clara Crane MD SEX: M ORDER DR: [id number] [facility] [address] [place], [place] [address] [id number] I MR#: [id number] Acc #: [id number] NAME: MARTY MOISE : 1960 SEX: M STUDY DATE/TIME: 02/02/2017 12:11 UNIT: [facility] ROOM: [id number] STUDY DESCRIPTION: CR Foot 2 Views Rt Attending Physician: Lore Arreguin M.D. Ordering Physician: Honey Muro P.A.-C. Primary Care Physician: Derian Edwards M.D. MEDICAL IMAGING REPORT This report is preliminary unless electronic signature is present EXAM Three views of right foot. DATE 02/02/2017 HISTORY Mild foot pain, swelling and redness, symptoms in the right foot for 3 days. History of diabetes and gout. COMPARISON None. FINDINGS No fracture or joint dislocation. Joint spaces appear well maintained. There is a small, marginal erosion at the distal medial surface of the proximal phalanx of the great toe, in keeping with the patient's stated history of gout. Dense calcific atherosclerotic changes are seen within the right foot and ankle. No osteolytic or osteoblastic abnormalities or plain film evidence of osteomyelitis. No subcutaneous gas is identified. IMPRESSION 1. No acute right foot finding. 2. Tiny, marginal subchondral cystic change or erosion at the distal medial aspect of the proximal phalanx of the great toe, in keeping with a history of gout. 3. Extensive calcific atherosclerosis. Dictated by... Sejal Green M.D. THIS IS AN ELECTRONICALLY VERIFIED REPORT [facility] A Service of [facility] & [facility] RADIOLOGY TEXT RESULTS PATIENT: MARTY MOISE LOCATION: [facility] : 58 UNIT #: [id number] AGE: [address]: Clara Crane MD SEX: M ORDER DR: Sejal Green M.D. at 02/03/2017 8:32 AM LLMarc/jules TD: 02/02/2017 16:40 JOB #: [id number] MEDICAL IMAGING REPORT Page 1 of 1 COPY
--- NOTE | ~2017-02-02 | A ---
[facility] Nutrition Therapy DATE: 02/13/17 Patient: MARTY MOISE Physician: GERRI Address: [address] Room/Bed: [address] [place] [address], Zip: [place] [address] Admit Date: 02/02/17 Date of : 58 Height: 5 11 Weight: 230 104.32 NUTRITIONAL ASSESSMENT: REASON: LOS ASSESSMENT PT IS 56 Y.O. MALE ADMITTED FOR BILATERAL FEET SORES/SWELLING PMH: T2DM, HTN, HLD, GERD, DIABETIC NEUROPATHY, CAD, PAD Anthropometrics: 5'11", WT: 230# (105 KG), BMI: 32.1 Labs: GLU: 170, BUN: 56, CREAT: 5.7, CA+:7.8, ALB: 3.0, A1c: 12.6, GFR: 10.1 Meds: HUMULIN N-100, NACL, LIPITOR, NOVOLOG, PROTONIX, PHENERGAN, ZOFRAN I/O & Bowel function: , 2 BMs NOTED Skin Integrity: DIABETIC (R) FOOT (?ABSCESS); OSTEOMYELITIS 2ND TOE (L) FOOT-AMPUTATION EDEMA: RLE CELLULITIS; PENIS/SCROTUM 2+ EDEMA; ABD GENERAL EDEMA Estimated Nutrition Needs: INCREASED PROTEIN NEEDS 2' SKIN BREAKDOWN NOTED Assessment: CHART REVIEWED AND EVENTS NOTED. PT SEEN FOR LENGTH OF STAY (10 DAYS). PT REPORTS FAIR/GOOD PO INTAKE AND APPETITE, ADDS HIS APPETITE WAS GOOD PRIOR TO ADMIT. PT REPORTS SOME WEIGHT LOSS BUT UNABLE TO KNOW AMOUNT AND TIME FRAME. RN REPORTS PT'S FAMILY BRINGS FOOD FROM OUTSIDE. THIS RD PROVIDED WRITTEN AND VERBAL CC DIET EDUCATION. PT PROVIDED LIST OF FOODS TO AVOID/LIMIT AND FOODS TO EAT MORE OFTEN. PT REPORTS NOT FOLLOWING A SPECIFIC DIET AT HOME. PT DEMONSTRATED UNDERSTANDING OF THE TOPIC. RD TO REMAIN AVAILABLE. Dx: IMPAIRED GLYCEMIC CONTROL R/T PMH AEB ELEVATED BLOOD SUGAR LEVELS, A1c OF 12.6, DM WOUNDS NOTED. Intervention: 1. CONSISTENT CARBOHYDRATE DIET 2. DIET EDUCATION Monitoring, Evaluation and Goals: 1. ORAL INTAKE; CONSUME >50% OF MEALS W/NO C/O N/V/D 2. WEIGHTS; PROMOTE GRADUAL WEIGHT LOSS TOWARDS HEALTHY BMI 3. LABS; GLU, BUN, CREAT 4. SKIN; PROMOTE SKIN HEALING MONITOR: -PO INTAKE/APPETITE [facility] Nutrition Therapy DATE: 02/13/17 Patient: MARTY MOISE Physician: GERRI Address: [address] [place] [address] Room/Bed: [address] [place] [address], Zip: [place] [address] Admit Date: 02/02/17 Date of : 58 Height: 5 11 Weight: 230 104.32 -WEIGHTS -LABS -EDUCATION NEEDS Recommendations: 1. ADD HEALTHY HEART TO CURRENT DIET ORDER 2' PMH 2. CONSULT RD IF FURTHER DIET EDUCATION REQUESTED 3. CONSIDER ADDING MVI W/MINERAL DAILY 2' SKIN BREAKDOWN RD WILL F/U PER PROTOCOL PT IS MILDLY COMPROMISED Respectfully, NINA MIJARES MS, RD, LD Food and Nutritional Services [facility] cc: client file
--- NOTE | ~2017-02-02 | US136 ---
[facility] A Service of [facility] & [facility] RADIOLOGY TEXT RESULTS PATIENT: MARTY MOISE LOCATION: C2A : 58 UNIT #: [id number] AGE: [address]: Clara Crane MD SEX: M ORDER DR: [id number] [facility] [address] [place], [place] [address] [id number] I MR#: [id number] Acc #: [id number] NAME: MARTY MOISE : 1960 SEX: M STUDY DATE/TIME: 02/02/2017 14:37 UNIT: C2A ROOM: [facility] STUDY DESCRIPTION: US U/L Ext Art Study Ltd Bilat Attending Physician: Lore Arreguin M.D. Ordering Physician: Honey Muro P.A.-C. Primary Care Physician: Derian Edwards M.D. MEDICAL IMAGING REPORT This report is preliminary unless electronic signature is present EXAM Bilateral ankle-brachial indices HISTORY Claudication bilaterally for 1 month. TECHNIQUE Pressures were obtained through bilateral lower extremities and pulse volume recordings were generated. FINDINGS This patient's bdnsc-te-neaywoqz indices are elevated bilaterally measuring 1.26 at the dorsalis pedis artery on the right and 1.24 at the posterior tibial artery on the right. Rdbyk-wr-rjcldywt index of the posterior tibial artery on the left is 1.56 and at the dorsalis pedis artery on the left is 1.21. Wfl-yq-uqyehbjb indices measure 1.03 on the right and could not be obtained on the left, probably due to non-compressibility. Overall, however, I think the waveforms on the pulse volume recordings appear preserved. I think the findings argue against any significant peripheral arterial disease. IMPRESSION Cohkw-pe-pzoppejy indices appear somewhat elevated bilaterally and kus-ju-oznlahpq index the left could not be obtained. This is likely secondary to non-compressibility in this diabetic patient. However, I do think overall pulse volume recordings are fairly well preserved. I think findings argue against any hemodynamically significant peripheral arterial disease. Dictated by... Amarilis Fine M.D. [facility] A Service of [facility] & [facility] RADIOLOGY TEXT RESULTS PATIENT: MARTY MOISE LOCATION: [place] [address] : 58 UNIT #: [id number] AGE: [address]: Clara Crane MD SEX: M ORDER DR: THIS IS AN ELECTRONICALLY VERIFIED REPORT Amarilis Fine M.D. at 02/03/2017 3:25 PM AFF/pcl TD: 02/02/2017 21:07 JOB #: [id number] MEDICAL IMAGING REPORT Page 1 of 1 COPY
[2017-02-02 12:54] LABS: BASOPHIL# 0.1 X10e3 (0-0.3); BASOPHIL% 0.7 % (0-2.5); DIFF IND YES; EOSINOPHIL# 0.1 X10e3 (0-0.7); EOSINOPHIL% 0.7 % (0.0-7.0); HEMATOCRIT 41.8 % (38.0-50.0); HEMOGLOBIN 13.9 gm/dL (13.0-16.0); LYMPHOCYTE# 1.6 X10e3 (1.0-3.5); LYMPHOCYTE% 9.5 % (17.0-45.0); MEAN CELL VOLUME 84.2 FL (83-96); MEAN CORPUSCULAR HEMOGLOBIN 27.9 PG (28-34); MEAN CORPUSCULAR HGB CONC 33.2 g/dL (30-36); MEAN PLATELET VOLUME 9.4 FL (6.5-11.5); MONOCYTE# 1.2 X10e3 (0-1.0); MONOCYTE% 7.5 % (3.0-12.0); NEUTROPHIL# 13.5 X10e3 (1.5-7.1); NEUTROPHIL% 81.6 % (40-75); PLATELET COUNT 250 X10e3 (140-420); RED BLOOD COUNT 4.96 X10e (3.90-5.60); RED CELL DISTRIBUTION WIDTH 12.9 % (11.0-15.5); WHITE BLOOD COUNT 16.5 X10e3 (4.0-10.5)
[2017-02-02 13:03] LABS: PLATELET ESTIMATE NORMAL (NORMAL); RBC NORMAL YES
[2017-02-02 13:19] LABS: ALBUMIN SERUM 3.8 g/dL (3.5-5.0); BILIRUBIN, DIRECT 0.3 mg/dL (0.0-0.2); BILIRUBIN,INDIRECT 1.2 mg/dL (0.0-0.9); BILIRUBIN,TOTAL 1.5 mg/dL (0.2-2.0); BUN/CREATININE RATIO 14.16; CALCIUM SERUM 9.2 mg/dL (8.4-10.2); CREATININE SERUM 1.2 mg/dL (0.6-1.4); GLOM FILT RATE Estimated 66.7 mL/min (>60); POTASSIUM 3.8 mmol/L (3.5-5.1); PROTEIN TOTAL SERUM 8.2 g/dL (6.0-8.3)
[2017-02-02] MEDS ORDERED: PATIENT'S PHARMACY (13:48)
[2017-02-02] MEDS ORDERED: NOVOLIN N100 UNIT/1 SUBQ (13:59)
[2017-02-02] MEDS ORDERED: NOVOLIN R100 UNITS/ SUBQ (13:59)
[2017-02-02] MEDS ORDERED: PHENERGAN25 MG PO (14:34)
[2017-02-02] MEDS ORDERED: OXYCODONE-ACET1 EAC1 PO (14:34)
[2017-02-02] MEDS ORDERED: AMBIEN10 MG PO (14:34)
[2017-02-02] MEDS ORDERED: CLOPIDOGREL75 MG PO (14:35)
[2017-02-02] MEDS ORDERED: LIPITOR40 MG PO (14:35)
[2017-02-02] MEDS ORDERED: IMDUR-ER60 M1 PO (14:35)
[2017-02-02] MEDS ORDERED: NITROSTAT0.4 MG PO (14:35)
[2017-02-02] MEDS ORDERED: OMEPRAZOLE40 M1 PO (14:36)
[2017-02-02] MEDS ORDERED: GABAPENTIN600 MG PO (14:36)
[2017-02-02] MEDS ORDERED: GLUCOPHAGE500 MG PO (14:36)
[2017-02-02] MEDS ORDERED: VALSARTAN-HCTZ1 EAC1 PO (14:36)
[2017-02-02] MEDS ORDERED: ROBAXIN PO (14:38)
[2017-02-02] MEDS ORDERED: KLONOPIN (14:52)
[2017-02-02] MEDS ORDERED: COREG3.125 MG PO (14:52)
[2017-02-03 05:29] LABS: HEMATOCRIT 34.6 % (38.0-50.0); MEAN CELL VOLUME 83.9 FL (83-96); MEAN CORPUSCULAR HEMOGLOBIN 27.6 PG (28-34); MEAN CORPUSCULAR HGB CONC 32.9 g/dL (30-36); MEAN PLATELET VOLUME 9.4 FL (6.5-11.5); RED BLOOD COUNT 4.12 X10e (3.90-5.60); RED CELL DISTRIBUTION WIDTH 13.2 % (11.0-15.5); WHITE BLOOD COUNT 15.1 X10e3 (4.0-10.5)
[2017-02-03 05:30] LABS: HEMOGLOBIN 11.4 gm/dL (13.0-16.0)
[2017-02-03 05:45] LABS: BILIRUBIN,TOTAL 1.2 mg/dL (0.2-2.0); BUN/CREATININE RATIO 15.45; CALCIUM SERUM 8.1 mg/dL (8.4-10.2); CREATININE SERUM 1.1 mg/dL (0.6-1.4); GLOM FILT RATE Estimated 74.1 mL/min (>60); POTASSIUM 3.9 mmol/L (3.5-5.1); PROTEIN TOTAL SERUM 6.7 g/dL (6.0-8.3)
[2017-02-04 05:55] LABS: HEMATOCRIT 31.3 % (38.0-50.0); HEMOGLOBIN 10.4 gm/dL (13.0-16.0)
[2017-02-04 06:19] LABS: BUN/CREATININE RATIO 8.06; CALCIUM SERUM 7.6 mg/dL (8.4-10.2); CREATININE SERUM 3.1 mg/dL (0.6-1.4); GLOM FILT RATE Estimated 21.2 mL/min (>60); MAGNESIUM 1.8 mg/dL (1.6-3.0)
[2017-02-04 17:39] LABS: URINE APPEARANCE CLOUDY; URINE BILIRUBIN NEG (NEG); URINE BLOOD NEG (NEG); URINE COLOR DK YELLOW; URINE GLUCOSE >1000 MG/DL (NEG); URINE KETONE NEG (NEG); URINE LEUKOCYTE ESTERASE NEG (NEG); URINE NITRATE NEG (NEG); URINE PROTEIN 1+ (NEG); URINE SPECIFIC GRAVITY 1.028 (1.003-1.035); URINE UROBILINOGEN 0.2 MG/DL (NEG)
[2017-02-04 17:41] LABS: URINE BACTERIA AUWI NEG (NEGATIVE); URINE SQUAMOUS EPITHELIAL CELL OCC /[HPF]
[2017-02-04 17:51] LABS: U HYALINE CASTS AUWI 0-2 /[LPF]
[2017-02-04 17:52] LABS: CREATININE,RANDOM URINE 181 mg/dL; SODIUM URINE RANDOM 21 mmol/L; TOTAL PROTEIN,RANDOM URINE 56 mg/dl (<10)
[2017-02-04 22:16] LABS: BASOPHIL# 0.1 X10e3 (0-0.3); BASOPHIL% 0.6 % (0-2.5); EOSINOPHIL# 0.2 X10e3 (0-0.7); HEMATOCRIT 28.7 % (38.0-50.0); HEMOGLOBIN 9.5 gm/dL (13.0-16.0); LYMPHOCYTE# 1.9 X10e3 (1.0-3.5); LYMPHOCYTE% 10.2 % (17.0-45.0); MEAN CORPUSCULAR HEMOGLOBIN 27.8 PG (28-34); MEAN CORPUSCULAR HGB CONC 33.1 g/dL (30-36); MEAN PLATELET VOLUME 8.9 FL (6.5-11.5); MONOCYTE# 1.8 X10e3 (0-1.0); MONOCYTE% 9.9 % (3.0-12.0); NEUTROPHIL# 14.2 X10e3 (1.5-7.1); NEUTROPHIL% 78.3 % (40-75); PLATELET COUNT 264 X10e3 (140-420); RED BLOOD COUNT 3.41 X10e (3.90-5.60); RED CELL DISTRIBUTION WIDTH 13.1 % (11.0-15.5); WHITE BLOOD COUNT 18.1 X10e3 (4.0-10.5)
[2017-02-04 22:18] LABS: DIFF IND NO
[2017-02-05 05:10] LABS: HEMATOCRIT 29.4 % (38.0-50.0); HEMOGLOBIN 9.7 gm/dL (13.0-16.0); MEAN CELL VOLUME 84.2 FL (83-96); MEAN CORPUSCULAR HEMOGLOBIN 27.6 PG (28-34); MEAN CORPUSCULAR HGB CONC 32.8 g/dL (30-36); MEAN PLATELET VOLUME 8.9 FL (6.5-11.5); RED BLOOD COUNT 3.5 X10e (3.90-5.60); RED CELL DISTRIBUTION WIDTH 13.3 % (11.0-15.5); WHITE BLOOD COUNT 17.7 X10e3 (4.0-10.5)
[2017-02-05 06:32] LABS: BUN/CREATININE RATIO 6.36; CALCIUM SERUM 7.6 mg/dL (8.4-10.2); GLOM FILT RATE Estimated 10.6 mL/min (>60); POTASSIUM 4.1 mmol/L (3.5-5.1)
[2017-02-05 06:34] LABS: CREATININE SERUM 5.5 mg/dL (0.6-1.4)
[2017-02-05 17:07] LABS: BUN/CREATININE RATIO 6.39; CALCIUM SERUM 7.5 mg/dL (8.4-10.2); CREATININE SERUM 6.1 mg/dL (0.6-1.4); GLOM FILT RATE Estimated 9.3 mL/min (>60); POTASSIUM 3.8 mmol/L (3.5-5.1)
[2017-02-06 04:03] LABS: BUN/CREATININE RATIO 6.41; CALCIUM SERUM 7.5 mg/dL (8.4-10.2); CREATININE SERUM 6.7 mg/dL (0.6-1.4); GLOM FILT RATE Estimated 8.3 mL/min (>60); POTASSIUM 3.8 mmol/L (3.5-5.1)
[2017-02-07 05:49] LABS: HEMATOCRIT 27.7 % (38.0-50.0); HEMOGLOBIN 9.1 gm/dL (13.0-16.0); MEAN CELL VOLUME 84.5 FL (83-96); MEAN CORPUSCULAR HEMOGLOBIN 27.7 PG (28-34); MEAN CORPUSCULAR HGB CONC 32.8 g/dL (30-36); MEAN PLATELET VOLUME 8.4 FL (6.5-11.5); RED BLOOD COUNT 3.28 X10e (3.90-5.60); RED CELL DISTRIBUTION WIDTH 13.3 % (11.0-15.5)
[2017-02-07 06:54] LABS: BUN/CREATININE RATIO 6.41; CALCIUM SERUM 7.5 mg/dL (8.4-10.2); CREATININE SERUM 8.1 mg/dL (0.6-1.4); GLOM FILT RATE Estimated 6.6 mL/min (>60); POTASSIUM 3.9 mmol/L (3.5-5.1)
[2017-02-08 05:54] LABS: HEMATOCRIT 27.5 % (38.0-50.0); HEMOGLOBIN 9.3 gm/dL (13.0-16.0); MEAN CELL VOLUME 83.3 FL (83-96); MEAN CORPUSCULAR HEMOGLOBIN 28.1 PG (28-34); MEAN CORPUSCULAR HGB CONC 33.8 g/dL (30-36); MEAN PLATELET VOLUME 8.4 FL (6.5-11.5); RED BLOOD COUNT 3.3 X10e (3.90-5.60); RED CELL DISTRIBUTION WIDTH 13.2 % (11.0-15.5); WHITE BLOOD COUNT 12.6 X10e3 (4.0-10.5)
[2017-02-08 06:41] LABS: BUN/CREATININE RATIO 6.51; CALCIUM SERUM 7.9 mg/dL (8.4-10.2); CREATININE SERUM 6.6 mg/dL (0.6-1.4); GLOM FILT RATE Estimated 8.5 mL/min (>60); POTASSIUM 3.9 mmol/L (3.5-5.1)
[2017-02-09 05:14] LABS: HEMATOCRIT 28.9 % (38.0-50.0); HEMOGLOBIN 9.4 gm/dL (13.0-16.0); MEAN CELL VOLUME 84.1 FL (83-96); MEAN CORPUSCULAR HEMOGLOBIN 27.4 PG (28-34); MEAN CORPUSCULAR HGB CONC 32.6 g/dL (30-36); MEAN PLATELET VOLUME 8.1 FL (6.5-11.5); RED BLOOD COUNT 3.44 X10e (3.90-5.60); RED CELL DISTRIBUTION WIDTH 13.3 % (11.0-15.5); WHITE BLOOD COUNT 11.7 X10e3 (4.0-10.5)
[2017-02-09 06:20] LABS: BUN/CREATININE RATIO 6.6; CALCIUM SERUM 8.1 mg/dL (8.4-10.2); CREATININE SERUM 5.3 mg/dL (0.6-1.4); GLOM FILT RATE Estimated 11.1 mL/min (>60); POTASSIUM 3.7 mmol/L (3.5-5.1)
[2017-02-09 15:15] LABS: HA AB IGM (HEPPAN) Nonreactive (()); HB CORE AB IGM (HEPPAN) Nonreactive (Nonreactive); HB S AG (HEPPAN) Nonreactive (Nonreactive); HEP C AB (HEPPAN) Nonreactive (Nonreactive); HEP C AB SIGNAL TO CUTOFF 0.03 ratio (<1.00)
[2017-02-10 08:09] LABS: HEMATOCRIT 30.2 % (38.0-50.0); HEMOGLOBIN 10.1 gm/dL (13.0-16.0); MEAN CELL VOLUME 83.2 FL (83-96); MEAN CORPUSCULAR HEMOGLOBIN 27.7 PG (28-34); MEAN CORPUSCULAR HGB CONC 33.3 g/dL (30-36); MEAN PLATELET VOLUME 7.8 FL (6.5-11.5); RED BLOOD COUNT 3.64 X10e (3.90-5.60); RED CELL DISTRIBUTION WIDTH 13.5 % (11.0-15.5); WHITE BLOOD COUNT 12.9 X10e3 (4.0-10.5)
[2017-02-10 08:38] LABS: BUN/CREATININE RATIO 6.59; CALCIUM SERUM 8.8 mg/dL (8.4-10.2); CREATININE SERUM 4.7 mg/dL (0.6-1.4); GLOM FILT RATE Estimated 12.8 mL/min (>60); POTASSIUM 3.6 mmol/L (3.5-5.1)
[2017-02-11 06:28] LABS: HEMOGLOBIN 8.9 gm/dL (13.0-16.0); MEAN CELL VOLUME 83.9 FL (83-96); MEAN CORPUSCULAR HEMOGLOBIN 27.6 PG (28-34); MEAN CORPUSCULAR HGB CONC 32.9 g/dL (30-36); MEAN PLATELET VOLUME 7.6 FL (6.5-11.5); RED BLOOD COUNT 3.22 X10e (3.90-5.60); RED CELL DISTRIBUTION WIDTH 13.7 % (11.0-15.5); WHITE BLOOD COUNT 11.5 X10e3 (4.0-10.5)
[2017-02-11 07:09] LABS: BUN/CREATININE RATIO 6.98; CALCIUM SERUM 8.3 mg/dL (8.4-10.2); CREATININE SERUM 5.3 mg/dL (0.6-1.4); GLOM FILT RATE Estimated 11.1 mL/min (>60); POTASSIUM 3.5 mmol/L (3.5-5.1)
[2017-02-12 06:09] LABS: HEMOGLOBIN 9.6 gm/dL (13.0-16.0); MEAN CELL VOLUME 83.6 FL (83-96); MEAN CORPUSCULAR HEMOGLOBIN 27.6 PG (28-34); MEAN PLATELET VOLUME 7.5 FL (6.5-11.5); RED BLOOD COUNT 3.47 X10e (3.90-5.60); RED CELL DISTRIBUTION WIDTH 13.5 % (11.0-15.5); WHITE BLOOD COUNT 12.7 X10e3 (4.0-10.5)
[2017-02-12 06:39] LABS: BUN/CREATININE RATIO 7.89; CALCIUM SERUM 8.3 mg/dL (8.4-10.2); CREATININE SERUM 5.7 mg/dL (0.6-1.4); GLOM FILT RATE Estimated 10.1 mL/min (>60); POTASSIUM 3.7 mmol/L (3.5-5.1)
[2017-02-13 06:52] LABS: HEMATOCRIT 26.1 % (38.0-50.0); HEMOGLOBIN 8.8 gm/dL (13.0-16.0); MEAN CELL VOLUME 84.2 FL (83-96); MEAN CORPUSCULAR HEMOGLOBIN 28.3 PG (28-34); MEAN CORPUSCULAR HGB CONC 33.6 g/dL (30-36); MEAN PLATELET VOLUME 7.7 FL (6.5-11.5); RED BLOOD COUNT 3.1 X10e (3.90-5.60); RED CELL DISTRIBUTION WIDTH 13.2 % (11.0-15.5); WHITE BLOOD COUNT 9.8 X10e3 (4.0-10.5)
[2017-02-13 07:14] LABS: BUN/CREATININE RATIO 9.82; CALCIUM SERUM 7.8 mg/dL (8.4-10.2); CREATININE SERUM 5.7 mg/dL (0.6-1.4); GLOM FILT RATE Estimated 10.1 mL/min (>60); MAGNESIUM 1.8 mg/dL (1.6-3.0); POTASSIUM 3.7 mmol/L (3.5-5.1)
[2017-02-14 04:57] LABS: HEMATOCRIT 25.4 % (38.0-50.0); HEMOGLOBIN 8.7 gm/dL (13.0-16.0); MEAN CORPUSCULAR HEMOGLOBIN 28.6 PG (28-34); MEAN CORPUSCULAR HGB CONC 34.1 g/dL (30-36); MEAN PLATELET VOLUME 7.5 FL (6.5-11.5); RED BLOOD COUNT 3.02 X10e (3.90-5.60); RED CELL DISTRIBUTION WIDTH 13.7 % (11.0-15.5); WHITE BLOOD COUNT 9.1 X10e3 (4.0-10.5)
[2017-02-14 06:59] LABS: BUN/CREATININE RATIO 10.16; CALCIUM SERUM 8.1 mg/dL (8.4-10.2); CREATININE SERUM 5.9 mg/dL (0.6-1.4); GLOM FILT RATE Estimated 9.7 mL/min (>60)
[2017-02-15 06:34] LABS: BUN/CREATININE RATIO 10.71; CALCIUM SERUM 8.3 mg/dL (8.4-10.2); CREATININE SERUM 5.6 mg/dL (0.6-1.4); GLOM FILT RATE Estimated 10.4 mL/min (>60); POTASSIUM 4.4 mmol/L (3.5-5.1)
[2017-02-15 08:44] LABS: BASOPHIL# 0.1 X10e3 (0-0.3); BASOPHIL% 0.8 % (0-2.5); DIFF IND YES; EOSINOPHIL# 0.2 X10e3 (0-0.7); EOSINOPHIL% 1.6 % (0.0-7.0); HEMATOCRIT 27.3 % (38.0-50.0); LYMPHOCYTE# 1.5 X10e3 (1.0-3.5); LYMPHOCYTE% 11.5 % (17.0-45.0); MEAN CELL VOLUME 84.5 FL (83-96); MEAN CORPUSCULAR HEMOGLOBIN 27.9 PG (28-34); MEAN PLATELET VOLUME 7.2 FL (6.5-11.5); MONOCYTE% 7.4 % (3.0-12.0); NEUTROPHIL# 10.3 X10e3 (1.5-7.1); NEUTROPHIL% 78.7 % (40-75); PLATELET COUNT 373 X10e3 (140-420); RED BLOOD COUNT 3.23 X10e (3.90-5.60); RED CELL DISTRIBUTION WIDTH 13.7 % (11.0-15.5)
[2017-02-15 08:54] LABS: INR 1.2; PARTIAL THROMBOPLASTIN TIME 36.5 SECONDS (23.5-31.3); PROTHROMBIN TIME (PATIENT) 13.1 SECONDS (10.0-11.7)
[2017-02-15 09:13] LABS: PLATELET ESTIMATE NORMAL (NORMAL); RBC NORMAL YES
[2017-02-16 14:53] LABS: BUN/CREATININE RATIO 10.78; CALCIUM SERUM 8.3 mg/dL (8.4-10.2); CREATININE SERUM 5.1 mg/dL (0.6-1.4); GLOM FILT RATE Estimated 11.6 mL/min (>60); POTASSIUM 4.3 mmol/L (3.5-5.1)
[2017-02-16] MEDS ORDERED: KLONOPIN PO (16:35)
[2017-02-16] MEDS ORDERED: HYDRALAZINE HC100 MG PO (16:37)
[2017-02-16] MEDS ORDERED: DILTIAZEM 24HR240 M2 PO (16:37)
[2017-02-16] MEDS ORDERED: PHENERGAN PO (16:38)
[2017-02-16] MEDS ORDERED: ACETAMINOPHEN325 MG PO (16:41)
== END 2017-02-16 17:42 | disposition home health service (06) | DRG 853 ==
LOC: CED 11:31 → C2A 14:10 → CEDOF 14:10 → CED 14:44 → CEDOF 14:44 → C2A 20:23
PROVIDERS: Family Medicine; Internal Medicine; Internal Medicine Nephrology; Physician Assistant; Podiatrist Foot & Ankle Surgery
PROC: 02HV33Z Insertion of Infusion Device into Superior Vena Cava, Percutaneous Approach (ICD-10-PCS; 2017-02-04)
PROC: 4A02X4A Measurement of Cardiac Electrical Activity, Guidance, External Approach (ICD-10-PCS; 2017-02-04)
PROC: 0KBV0ZZ Excision of Right Foot Muscle, Open Approach (ICD-10-PCS; principal; 2017-02-06 07:30)
PROC: 02H633Z Insertion of Infusion Device into Right Atrium, Percutaneous Approach (ICD-10-PCS; 2017-02-07)
PROC: B244ZZZ Ultrasonography of Right Heart (ICD-10-PCS; 2017-02-07)
PROC: 5A1D60Z (ICD-10-PCS; 2017-02-09)
PROC: 02HV33Z Insertion of Infusion Device into Superior Vena Cava, Percutaneous Approach (ICD-10-PCS; 2017-02-15)
PROC: B548ZZA Ultrasonography of Superior Vena Cava, Guidance (ICD-10-PCS; 2017-02-15)
DX: A41.9 Sepsis, unspecified organism (principal); N17.0 Acute kidney failure with tubular necrosis; E87.2 Acidosis; E11.628 Type 2 diabetes mellitus with other skin complications; L03.115 Cellulitis of right lower limb; E11.40 Type 2 diabetes mellitus with diabetic neuropathy, unspecified; L03.116 Cellulitis of left lower limb; L02.611 Cutaneous abscess of right foot; B96.1 Klebsiella pneumoniae [K. pneumoniae] as the cause of diseases classified elsewhere; E11.65 Type 2 diabetes mellitus with hyperglycemia; Z79.4 Long term (current) use of insulin; I10 Essential (primary) hypertension; T36.8X5A Adverse effect of other systemic antibiotics, initial encounter; Y92.239 Unspecified place in hospital as the place of occurrence of the external cause; I25.10 Atherosclerotic heart disease of native coronary artery without angina pectoris; E78.5 Hyperlipidemia, unspecified; K21.9 Gastro-esophageal reflux disease without esophagitis; I73.9 Peripheral vascular disease, unspecified; G89.29 Other chronic pain; G25.3 Myoclonus; D63.8 Anemia in other chronic diseases classified elsewhere; E87.6 Hypokalemia; R11.0 Nausea; Z89.422 Acquired absence of other left toe(s); Z90.49 Acquired absence of other specified parts of digestive tract; L84 Corns and callosities
CPT/HCPCS: 36415; 71020; 73620; 73718; 76770; 76937; 77001; 80048; 80053; 80074; 80076; 80202; 81003; 82570; 82652; 82728; 82947; 83036; 83540; 83605; 83735; 83880; 84156; 84300; 84466; 85014; 85018; 85025; 85027; 85610; 85730; 87040; 87070; 87075; 87077; 87086; 87186; 87205; 89190; 93922; 96374; 97116; 97162; 97166; 97535; 99284; C1750; C1894; G8978-GP; G8979-GP; G8980-GP; G8987-GO; G8988-GO; J0696; J0885; J1644; J1815; J1940; J2020; J2250; J2270; J2405; J2543; J2550; J2916; J2997; J3010; J3370